=== PATIENT | female | born 1980 | race Caucasian/White ===

== ENCOUNTER 2018-02-17 09:55 | Observation (INO) | payer OTHER ==
--- NOTE | 2018-02-17 06:10 | PDGENHP ---
History and Physical History and Physical: Assessment and Plan: 1. Endometriosis of pelvic peritoneum Yael's symptoms are consistent with persistent endometriosis. There may be a contribution from her left ovary. We reviewed all conservative and surgical options. At the end of our discussion she is interested in surgical treatment. This will be a robotic excision of all lesions of endometriosis. I likely will recommend removing her remaining ovary depending on how things look. We discussed the possibility of further medical management until surgery which might involve [place]. However she may forego this until surgery. 2. Pelvic pain Subjective: Patient ID: Yael Schultz is a 37 y.o. female who presents to [facility] for endometriosis. ОЛЬГА Conley is a 37-year-old para 0 woman from [place]. She presents with her . They have 2 adopted children. She has a long history of endometriosis. She underwent 3 laparoscopies for ectopic pregnancies eventually having both fallopian tubes removed. She was noted to have endometriosis at each of those surgeries. She eventually underwent a hysterectomy in 2015. The left her left ovary in place. She has had a long history of abdominal pain and has been diagnosed with mild Crohn's disease. Her pain improved after her hysterectomy for several years. However the pain has more recently returned. She feels a shooting pain up her left side with bloating and urinary frequency. She finds it difficult to pass bowel movements with dyschezia before her bowel movements. She has pain on a daily basis. She has some dyspareunia on the left. She had a recent ultrasound which was normal. I have a copy of her 2015 hysterectomy operative note which mentions significant endometriosis in the posterior cul-de-sac and both pelvic sidewalls , worse on the right. PastMedicalHistory Past Medical History: Diagnosis Date Crohn's colitis (HC code) Endometriosis History of chickenpox History of infertility PastSurgicalHistory Past Surgical History: Procedure Laterality Date COLONOSCOPY HYSTERECTOMY Left ovary remains OVARY REMOVAL Right PELVIC LAPAROSCOPY X 3 TONSILLECTOMY AND ADENOIDECTOMY WISDOM TOOTH EXTRACTION CURRENT MEDICATIONS: Current Outpatient Medications Medication Sig acetaminophen (TYLENOL) 500 mg tablet Take 500 mg by mouth daily for FEVER , Pain, Taking 500mg q 2hrs for fever. acetaminophen/pamabrom (MIDOL PO) Take by mouth as needed. zolpidem (AMBIEN) 10 mg tablet zolpidem 10 mg tablet TAKE ONE TABLET BY MOUTH EVERY NIGHT AT BEDTIME NEEDED No current facility-administered medications for this visit. ALLERGIES: Patient has no known allergies. I have reviewed, verified and agree with the past medical, surgical, , family, social and ROS history as documented by the RN today. Objective: Vital Signs: Visit Vitals BP 106/64 Pulse 79 Temp 37.6 C (99.6 F) (Temporal) Resp 16 Ht 1.676 m (5' 6") Wt 63 kg (139 lb) SpO2 99% BMI 22.44 kg/m Physical Exam Gen: This is an alert, well developed woman in no distress. Neuro: She moves all extremities. Psych: She is appropriate, oriented, with normal affect. Neck: No thyroid enlargement, adenopathy, or tenderness. Lungs: Clear to ascultation, no wheezes or rales. Heart: Regular rate and rhythm without obvious murmurs. Abdomen: Soft, non-tender, without guarding, rebound, or masses. Extremities: No edema or cyanosis. Pelvic: Normal external genitalia. Non-gaping introitus, vagina without discharge, adequately estrogenized, no significant prolapse. She is tender along the vaginal cuff and the posterior cul-de-sac more so on the left. She has no rectovaginal tenderness or pelvic masses. The vaginal cuff is adequately supported. DATA: I have reviewed the pertinent medical records. TIME/COMMUNICATION: I personally spent a total of 60 minutes. Of that 45 minutes was counseling/ coordination of patient's care. See my note above for details. Lance Conley MD Board Certified Female Pelvic Medicine and Reconstructive Surgery Director of Minimally Invasive Gynecologic Surgery, [facility] Surgeon in Minimally Invasive Gynecologic Surgery [facility] Surgeon in Robotic Surgery
[2018-02-17] MEDS ORDERED: PHENAZOPYRIDINE HCL 200 MG TAB PO ONE (10:21)
[2018-02-17] MEDS ORDERED: GABAPENTIN 300 MG CAP PO ONE (10:21)
[2018-02-17] MEDS ORDERED: ceFAZolin 2 GM/DEXTROSE 100 ML IV ONE (10:21)
[2018-02-17] MEDS ORDERED: ACETAMINOPHEN 500 MG TAB PO ONE (10:21)
[2018-02-17] MEDS ORDERED: LIDOCAINE 1% 2 ML INJ ID PRN (10:22)
[2018-02-17] MEDS ORDERED: LR 1,000 ML IV ONE (10:22)
--- NOTE | 2018-02-17 12:06 | PDHPUP ---
History & Physical Update H&P update statement: This history and physical update is based on an assessment of the patient which was completed after admission or registration (within 24 hours), but prior to the surgery/procedure. H&P update: H&P reviewed & patient examined, no change in patient's condition since H&P completed
[2018-02-17] MEDS ORDERED: fentaNYL 250 MCG/5 ML INJ ONE (12:23)
[2018-02-17] MEDS ORDERED: PROPOFOL 200 MG/20 ML VIAL ONE (12:24)
[2018-02-17] MEDS ORDERED: LIDOCAINE 2% 5 ML SDV ONE (12:26)
[2018-02-17] MEDS ORDERED: ROCURONIUM 50 MG/5 ML VIAL ONE (12:27)
[2018-02-17] MEDS ORDERED: MIDAZOLAM 2 MG/2 ML VIAL ONE (12:33)
[2018-02-17] MEDS ORDERED: MIDAZOLAM 2 MG/2 ML VIAL IVP ONE (12:36)
[2018-02-17] MEDS ORDERED: BUPIVACAINE/EPI 0.5% 30 ML SDV ONE (12:43)
[2018-02-17] MEDS ORDERED: DEXAMETHASONE 4 MG/ML VIAL ONE (13:10)
--- NOTE | 2018-02-17 13:15 | PDANEPAE ---
ANE History of Present Illness Endometriosis with pelvic pain ANE Past Medical History - Cardiovascular History Hx Hypertension: No Hx Arrhythmias: No Hx Chest Pain: No Hx Coronary Artery / Peripheral Vascular Disease: No Hx CHF / Valvular Disease: No Hx Palpitations: No - Pulmonary History Hx COPD: No Hx Asthma/Reactive Airway Disease: No Hx Recent Upper Respiratory Infection: No Hx Oxygen in Use at Home: No Hx Sleep Apnea: No Sleep Apnea Screening Result - Last Documented: Negative Pulmonary History Comment: PNEUMONIA X1 - 2 YRS AGO - Neurologic History Hx Cerebrovascular Accident: No Hx Seizures: No Hx Dementia: No - Endocrine History Hx Diabetes: No - Renal History Hx Renal Disorders: No - Liver History Hx Hepatic Disorders: No - Neurological & Psychiatric Hx Hx Neurological and Psychiatric Disorders: Yes Neurological / Psychiatric History Comment: INSOMNIA - Cancer History Hx Cancer: No - Congenital Disorder History Hx Congenital Disorders: No - GI History Hx Gastrointestinal Disorders: Yes Gastrointestinal History Comment: CHRONN'S DX IN PAST - Other Health History Other Health History: NEG - Chronic Pain History Chronic Pain: Yes (ENDOMETRIOSIS PAIN) - Surgical History Prior Surgeries: TONSILLECTOMY. ECTOPICS 3. HYSTERECTOMY ANE Review of Systems Review of systems is: negative Review of Systems: - Exercise capacity METS (RN): 5 METS ANE Patient History - Allergies Allergies/Adverse Reactions: No Known Allergies Allergy (Unverified 02/10/18 10:23) - Home Medications Home medications: home medication list seen and reviewed Home Medications: Rupaliien 02/10/18 [Last Taken 02/16/18] Herbals/Supplements -Info Only 02/10/18 [Last Taken Unknown] - NPO status NPO Since - Liquids (Date): 02/17/18 NPO Since - Liquids (Time): 07:00 NPO Since - Solids (Date): 02/17/18 NPO Since - Solids (Time): 21:00 - Anes Hx Anes Hx: no prior problems - Smoking Hx Smoking Status: Never smoked ANE Labs/Vital Signs - Vital Signs Blood Pressure: 127/88 Heart Rate: 72 Respiratory Rate: 20 O2 Sat (%): 97 Height: 165.1 cm Weight: 61.235 kg ANE Physical Exam - Airway Neck exam: FROM Mallampati Score: Class 1 Mouth exam: normal dental/mouth exam - Pulmonary Pulmonary: no respiratory distress - Cardiovascular Cardiovascular: regular rate and rhythym - ASA Status ASA Status: I ANE Anesthesia Plan Anesthesia Plan: general endotracheal anesthesia Total IV Anesthesia: No
[2018-02-17] MEDS ORDERED: PROMETHAZINE HCL 25 MG/ML INJ IVP PRN ×2 (13:41→16:45)
[2018-02-17] MEDS ORDERED: NALOXONE HCL 0.4 MG/ML INJ IVP PRN (13:41)
[2018-02-17] MEDS ORDERED: HYDROCODONE/APAP 5/325 TAB PO PRN (13:41)
[2018-02-17] MEDS ORDERED: fentaNYL 100 MCG/2 ML INJ IVP PRN (13:41)
[2018-02-17] MEDS ORDERED: ONDANSETRON 4 MG/2 ML VIAL IVP PRN ×2 (13:41→16:45)
--- NOTE | 2018-02-17 13:49 | POSTOPPROG ---
Post Op Note Date of Operation: 02/17/18 Surgeon: Lance Conley Hotel Service Manager: Lisa Burden Anesthesia: GET(General Endotracheal) Pre-op Diagnosis: Endometriosis Post-op Diagnosis: Same Procedure: Robotic excision of endo, left oophorectomy, bilat ureterolysis Findings: Endo Inf/Abcess present in the surg proc area at time of surgery?: No EBL: Minimal Complications: None
[2018-02-17] MEDS ORDERED: HYDROmorphONE/DILAUDID 2 MG/ML INJ ONE (14:05)
--- NOTE | 2018-02-17 14:06 | POSTANESTH ---
Post Anesthetic Evaluation Cardiovascular Status: Similar to Pre-Op Cond Respiratory Status: Similar to Pre-op Cond. Level of Consciousness/Mental Status: Alert and Oriented Pain Control: Adequate, Prn Tx Ordered Nausea/Vomiting Control: Adequate, Prn Tx Ordered Complications Possibly Related to Anesthesia: None Noted
[2018-02-17] MEDS ORDERED: HYDROCODONE/APAP 5/325 TAB ONE (14:09)
[2018-02-17] MEDS ORDERED: PROMETHAZINE HCL 25 MG/ML INJ ONE (14:30)
--- NOTE | 2018-02-17 15:49 | GOP ---
DATE OF OPERATION: 02/17/2018 SURGEON: Lance Conley MD [facility] ADVISOR: Lisa Burden CFA. ANESTHESIA: General. PREOPERATIVE DIAGNOSIS: 1. Endometriosis. 2. Pelvic pain. POSTOPERATIVE DIAGNOSIS: 1. Endometriosis. 2. Pelvic pain. PROCEDURE PERFORMED: 1. Robotic excision of endometriosis in posterior cul-de-sac, both pelvic sidewalls, as well as the vaginal cuff. 2. Left oophorectomy. 3. Bilateral ureterolysis. FINDINGS: SPECIMENS: 1. Left ovary. 1. Pelvic peritoneum with endometriosis. 2. ESTIMATED BLOOD LOSS: Scant. DESCRIPTION OF PROCEDURE: The patient was taken the operating room where she was identified. Genera l anesthesia was administered and found to be adequate. She was placed in the lithotomy position and prepared and draped in normal sterile fashion. A Hansen catheter was placed in her bladder. A 1 cm intraumbilical incision was made with a scalpel. The Veress needle with the CO2 gas flowing w as advanced into the peritoneal cavity. The abdomen was then insufflated with carbon dioxide gas. T he 12 mm trocar, followed by the laparoscope were then inserted. The upper abdomen was unremarkable. There was no endometriosis on either diaphragm, liver, stomach, gallbladder, or upper abdominal bow el. Two lateral ports were placed in the right, 1 on the left under direct visualization. She then was placed in Trendelenburg position and the da Regine robot docked on the left side. The instruments were then brought into the abdominal cavity under direct visualization. The sigmoid colon was draped over the left ovary, as well as adhesions between ovary and sigmoid. Th ere were multiple lesions of endometriosis in the posterior cul-de-sac, both pelvic sidewalls, as wel l as the vaginal cuff. The sigmoid colon was off the ovary. The ovary was gently dissecte d free. The infundibulopelvic vessels were cauterized and transected. The posterior cul-de-sac marcus toneum with endometriosis from the distal rectum up to the vaginal cuff and laterally to the uterosac ral ligaments was completely excised. The patient required a bilateral ureterolysis to remove the en dometriosis off both ureters. The peritoneum at the pelvic brims was incised. The ureters were gent ly dissected free from the pelvic brim down to the bladder. Once this accomplished, the entire pelvi c sidewall peritoneum was completely excised from the pelvic brim down to the vagina. The remaining peritoneum with endometriosis overlying the vaginal cuff was then excised. All specimens were sent to Pathology for permanent section. The pelvis was irrigated with sterile sa line, and hemostasis was present. The robot was then undocked. The fascia was closed with 0 Vicryl, skin with 4-0 Monocryl. Anesthesia was reversed, and the patient taken to the PACU awake, in stable condition. COMPLICATIONS: None. DISPOSITION: Patient stable to PACU. /[id number]/MODL
[2018-02-17] MEDS ORDERED: OXYCODONE/APAP 5/325 TAB PO PRN (16:45)
[2018-02-17] MEDS ORDERED: HYDROmorphONE/DILAUDID 1 MG/ML INJ IVP PRN (16:45)
[2018-02-17] MEDS ORDERED: ONDANSETRON DISINTEGRATING 4 MG TAB PO PRN (16:45)
[2018-02-17] MEDS ORDERED: LR 1,000 ML IV SCH (17:00)
[2018-02-17] MEDS: KETOROLAC 30 MG/1 ML SDV IVP SCH (17:50)
[2018-02-17] MEDS: HYDROCODONE/APAP 5/325 TAB PO PRN ×2 (17:51→22:02)
[2018-02-18] MEDS: KETOROLAC 30 MG/1 ML SDV IVP SCH ×2 (00:03→05:59)
[2018-02-18] MEDS: HYDROCODONE/APAP 5/325 TAB PO PRN ×2 (02:20→11:08)
[2018-02-18 08:03] VITALS: BP 90/58
--- NOTE | 2018-02-18 11:36 | GDS ---
DISCHARGE DIAGNOSES: 1. Endometriosis. 2. Pelvic pain. PROCEDURES: 1. Robotic excision of endometriosis in the posterior cul-de-sac, bilateral pelvic sidewalls and vag inal cuff. 2. Left oophorectomy. 3. Bilateral ureterolysis. HISTORY: The patient is a 37-year-old female with a long history of endometriosis and pelvic pain. She was taken to the operating room on 02/17/2018, where she underwent the above-mentioned procedures without complications. Her postoperative course was uneventful. The morning after surgery, she was ambulating, voiding, and tolerating a general diet. She was discharged home on [place] and ibuprofen for pain and estradiol 1 mg for hormone replacement. She is to follow up with me in 2 weeks. /[id number]/MODL
== END 2018-02-18 11:15 | disposition home or self-care (01) ==
LOC: FSGY 09:55 → F3E 16:45 → FOB 16:55
PROVIDERS: ADMIT Obstetrics & Gynecology; ATTEND Obstetrics & Gynecology
PROC: 8E0W4CZ Robotic Assisted Procedure of Trunk Region, Percutaneous Endoscopic Approach (ICD-10-PCS; principal; 2018-02-17 12:00)
PROC: 0UBG4ZZ Excision of Vagina, Percutaneous Endoscopic Approach (ICD-10-PCS; principal; 2018-02-17 12:00)
PROC: 0DBW4ZX Excision of Peritoneum, Percutaneous Endoscopic Approach, Diagnostic (ICD-10-PCS; principal; 2018-02-17 12:00)
PROC: 0UBF4ZZ Excision of Cul-de-sac, Percutaneous Endoscopic Approach (ICD-10-PCS; principal; 2018-02-17 12:00)
PROC: 0UT14ZZ Resection of Left Ovary, Percutaneous Endoscopic Approach (ICD-10-PCS; principal; 2018-02-17 12:00)
DX: N80.3 Endometriosis of pelvic peritoneum (principal); N80.1 Endometriosis of ovary; R10.2 Pelvic and perineal pain
CPT/HCPCS: 58661; 58662; G0378; J0690; J1100; J1170; J1885; J2250; J2550; J2704; J3010